=== PATIENT | female | born 1970 | race Caucasian/White ===

== ENCOUNTER → 2017-11-22 | Outpatient (CLI) | payer OTHER, BC ==
[~2017-11-22] MED LIST: ALBU90OI INH; BCP PO; BIRTH CONTROL PO; FEXPSEER PO; PRED10 PO
== END | disposition home or self-care (01) ==
LOC: LAB 08:30 → LAB SHORT 08:30
PROVIDERS: Nurse Practitioner
DX: Z01.419 Encounter for gynecological examination (general) (routine) without abnormal findings (principal)
CPT/HCPCS: G0145

== ENCOUNTER → 2018-06-20 | Outpatient (CLI) | payer OTHER, BC | LOC: LAB EV 17:54 → LAB SHORT 17:54 | DX: R30.0 Dysuria (principal) | CPT/HCPCS: 87086 ==

== ENCOUNTER → 2020-03-10 | Outpatient (CLI) | payer OTHER, BC ==
[~2020-03-10] MED LIST changes: +C COMPLEX1000 M1 PO; +Calcium Ascorb500 MG PO; +MINOCYCLINE HC100 M1 PO; +MULVITA PO; +Prozac20 MG PO; +TAMS.4ER PO; +VITAMIN D310 MC4 PO; +Vitamin B-121000 MCG PO
[2020-03-13 13:11] LABS: M-SPIKE, % Not Observed % (Not Observed); PROTEIN,TOTAL,URINE 6.2 mg/dL (Not Estab.)
== END | disposition home or self-care (01) ==
LOC: PLD 06:53
PROVIDERS: Physician Assistant
DX: R20.2 Paresthesia of skin (principal)
CPT/HCPCS: 81050; 84156; 84166

== ENCOUNTER → 2020-03-17 | Outpatient (CLI) | payer OTHER, BC ==
[2020-03-26 10:11] LABS: COPROPORPHYRIN (CP) I 26 ug/L (Undefined); COPROPORPHYRIN (CP) III 78 ug/L (Undefined); HEPTACARBOXYL (7-CP) 3 ug/L (Undefined); HEXACARBOXYL (6-CP) <1 ug/L (Undefined); PENTACARBOXYL (5-CP) <1 ug/L (Undefined); UROPORPHYRINS (UP) 12 ug/L (Undefined)
== END ==
LOC: LAB SHORT 07:58 → LAB 07:58
PROVIDERS: Physician Assistant
DX: R20.2 Paresthesia of skin (principal)
CPT/HCPCS: 81050; 84120

== ENCOUNTER → 2020-03-31 | Outpatient (CLI) | payer OTHER, BC | END | disposition home or self-care (01) | LOC: LAB SHORT 17:25 → LAB 17:25 | DX: R20.2 Paresthesia of skin (principal) | CPT/HCPCS: 84110 ==

== ENCOUNTER → 2020-08-24 | Outpatient (CLI) | payer OTHER, BC | END | disposition home or self-care (01) | LOC: LAB SHORT 11:51 → LAB 11:51 | DX: N39.0 Urinary tract infection, site not specified (principal) | CPT/HCPCS: 87077; 87086; 87186 ==

== ENCOUNTER 2020-09-05 01:31 | Day surgery (SDC) | payer OTHER, BC ==
[~2020-09-05 01:31] MED LIST changes: -C COMPLEX1000 M1 PO; -Calcium Ascorb500 MG PO; -MINOCYCLINE HC100 M1 PO; -MULVITA PO; -Prozac20 MG PO; -TAMS.4ER PO; -VITAMIN D310 MC4 PO; -Vitamin B-121000 MCG PO
[2020-09-05] MEDS ORDERED: TAMS.4ER PO (15:30)
[2020-09-05] MEDS ORDERED: Prozac20 MG PO (15:50)
[2020-09-05] MEDS ORDERED: Vitamin B-121000 MCG PO (16:26)
[2020-09-05] MEDS ORDERED: C COMPLEX1000 M1 PO (16:27)
[2020-09-05] MEDS ORDERED: VITAMIN D310 MC4 PO (16:27)
[2020-09-05] MEDS ORDERED: MULVITA PO (16:29)
[2020-09-05] MEDS ORDERED: Calcium Ascorb500 MG PO (16:29)
[2020-09-05] MEDS ORDERED: MINOCYCLINE HC100 M1 PO (16:30)
== END 2020-09-05 18:29 | disposition home or self-care (01) ==
LOC: ATC 01:31
DX: G35 Multiple sclerosis (principal); J45.909 Unspecified asthma, uncomplicated; Z91.018 Allergy to other foods; Z91.048 Other nonmedicinal substance allergy status
CPT/HCPCS: 96365; 96366; J2323

== ENCOUNTER → 2020-10-29 | Outpatient (CLI) | payer OTHER, BC ==
[~2020-10-29] MED LIST changes: +C COMPLEX1000 M1 PO; +Calcium Ascorb500 MG PO; +MINOCYCLINE HC100 M1 PO; +MULVITA PO; +Prozac20 MG PO; +Pyridium100 MG PO; +TAMS.4ER PO; +VITAMIN D310 MC4 PO; +Vitamin B-121000 MCG PO
[2020-10-29 07:02] LABS: Source, Urine Clean Catch
[2020-10-29 09:55] LABS: Appearance, Urine Hazy (Clear); Bilirubin, Urine Neg (Neg); Blood, Urine 2+ (Neg); Color, Urine Yellow (P-Yellow); Glucose Qualitative, Urine Neg (Neg); Ketones, Urine Neg (Neg); Leukocyte Esterase, Urine 2+ (Neg); Nitrite, Urine Pos (Neg); Protein, Urine 1+ (Neg); Specific Gravity, Urine 1.015 (1.003-1.022); Urobilinogen, Urine 1+ (Normal)
[2020-10-29 10:06] LABS: Bacteria Many /hpf; Squamous Epithelial Cells Few /hpf (Few); White Blood Cells, Urine TNTC /hpf (0-5)
== END | disposition home or self-care (01) ==
LOC: LAB 07:00 → LAB SHORT 07:00
PROVIDERS: Nurse Practitioner
DX: R35.0 Frequency of micturition (principal)
CPT/HCPCS: 81001; 87077; 87086; 87186

== ENCOUNTER 2020-10-31 00:28 | Day surgery (SDC) | payer OTHER, BC ==
[~2020-10-31] VITALS: Wt 83.5 kg
[~2020-10-31 00:28] MED LIST changes: -Pyridium100 MG PO
[2020-10-31] MEDS ORDERED: Pyridium100 MG PO (08:33)
== END 2020-10-31 10:58 | disposition home or self-care (01) ==
LOC: ATC 00:28
DX: G35 Multiple sclerosis (principal); Z98.84 Bariatric surgery status
CPT/HCPCS: 96365; J2323

== ENCOUNTER → 2020-11-25 | Outpatient (CLI) | payer OTHER, BC ==
[~2020-11-25] MED LIST changes: +BACL10 PO; +Pyridium100 MG PO
[2020-11-25 16:29] LABS: Source, Urine Clean Catch
[2020-11-25 17:21] LABS: Appearance, Urine Clear (Clear); Bilirubin, Urine Neg (Neg); Blood, Urine 1+ (Neg); Color, Urine Yellow (P-Yellow); Glucose Qualitative, Urine Neg (Neg); Ketones, Urine Neg (Neg); Leukocyte Esterase, Urine Neg (Neg); Nitrite, Urine Neg (Neg); Protein, Urine Neg (Neg); Urobilinogen, Urine NORM (Normal)
[2020-11-25 17:31] LABS: Red Blood Cells, Urine 0-2 /hpf (0-2); White Blood Cells, Urine 0-2 /hpf (0-5)
[2020-11-25 17:32] LABS: Bacteria Few /hpf; Squamous Epithelial Cells Rare /hpf (Few)
== END | disposition home or self-care (01) ==
LOC: LAB SHORT 16:27 → LAB 16:27 → LAB FUT 11-24 10:20
PROVIDERS: Psychiatry & Neurology Neurology
DX: N39.0 Urinary tract infection, site not specified (principal)
CPT/HCPCS: 81001

== ENCOUNTER 2020-12-26 13:10 | Day surgery (SDC) | payer OTHER, BC ==
[~2020-12-26] VITALS: Wt 84.3 kg
== END 2020-12-26 16:53 | disposition home or self-care (01) ==
LOC: ATC 13:10
DX: G35 Multiple sclerosis (principal)
CPT/HCPCS: 96365; J2323

== ENCOUNTER 2021-02-20 03:05 | Day surgery (SDC) | payer OTHER, BC | END 2021-02-20 16:30 | disposition home or self-care (01) | LOC: ATC 03:05 | DX: G35 Multiple sclerosis (principal) | CPT/HCPCS: J2323 ==

== ENCOUNTER 2021-04-17 00:33 | Day surgery (SDC) | payer OTHER, BC ==
[~2021-04-17] VITALS: Wt 82.9 kg
== END 2021-04-17 16:00 | disposition home or self-care (01) ==
LOC: ATC 00:33
DX: G35 Multiple sclerosis (principal)
CPT/HCPCS: J2323

== ENCOUNTER 2021-05-15 01:22 | Day surgery (SDC) | payer OTHER, BC ==
[~2021-05-15] VITALS: Wt 83.0 kg
== END 2021-05-15 16:16 | disposition home or self-care (01) ==
LOC: ATC 01:22
DX: G35 Multiple sclerosis (principal)
CPT/HCPCS: J2323

== ENCOUNTER 2021-06-12 00:49 | Day surgery (SDC) | payer OTHER, BC ==
--- NOTE | 2021-06-12 16:08 | NUR ---
PT MONITORED FOR 1 HOUR POST TYSABRI INFUSION. PATIENT TOLERATED WELL. NO COMPLAINTS OR SYMPTOMS OF REACTION.
== END 2021-06-12 16:01 | disposition home or self-care (01) ==
LOC: ATC 00:49
DX: G35 Multiple sclerosis (principal); J45.909 Unspecified asthma, uncomplicated; Z91.018 Allergy to other foods; Z91.048 Other nonmedicinal substance allergy status
CPT/HCPCS: J2323

== ENCOUNTER → 2021-06-23 | Outpatient (CLI) | payer OTHER, BC | END | disposition home or self-care (01) | LOC: LAB SHORT 11:00 → PLD 11:00 | DX: D48.5 Neoplasm of uncertain behavior of skin (principal) | CPT/HCPCS: 88305 ==

== ENCOUNTER 2021-08-18 00:57 | Day surgery (SDC) | payer OTHER, BC | END 2021-08-18 16:25 | disposition home or self-care (01) | LOC: ATC 00:57 | DX: G35 Multiple sclerosis (principal) | CPT/HCPCS: J2323 ==

== ENCOUNTER → 2021-08-24 | Outpatient (CLI) | payer OTHER, BC | END | disposition home or self-care (01) | LOC: PLD 07:38 → LAB SHORT 07:38 | DX: D22.5 Melanocytic nevi of trunk (principal) | CPT/HCPCS: 88305 ==

== ENCOUNTER → 2021-09-15 | Outpatient (CLI) | payer OTHER, BC | END | disposition home or self-care (01) | LOC: LAB SHORT 07:58 → PLD 07:58 | DX: D22.5 Melanocytic nevi of trunk (principal) | CPT/HCPCS: 88305 ==

== ENCOUNTER 2021-10-13 00:58 | Day surgery (SDC) | payer OTHER, BC ==
[2021-10-13] MEDS ORDERED: TYSABRI IV (14:26)
== END 2021-10-13 15:32 | disposition home or self-care (01) ==
LOC: ATC 00:58
DX: G35 Multiple sclerosis (principal); G43.909 Migraine, unspecified, not intractable, without status migrainosus
CPT/HCPCS: 96365; J2323

== ENCOUNTER 2021-11-10 01:38 | Day surgery (SDC) | payer OTHER, BC ==
[~2021-11-10 01:38] MED LIST changes: +TYSABRI IV
== END 2021-11-10 15:55 | disposition home or self-care (01) ==
LOC: ATC 01:38
DX: G35 Multiple sclerosis (principal)
CPT/HCPCS: 96365; J2323

== ENCOUNTER 2022-01-05 01:32 | Day surgery (SDC) | payer OTHER, BC | END 2022-01-05 15:35 | disposition home or self-care (01) | LOC: ATC 01:32 | DX: G35 Multiple sclerosis (principal) | CPT/HCPCS: 96365; J2323 ==

== ENCOUNTER → 2022-01-22 | Outpatient (CLI) | payer OTHER, BC ==
[2022-01-23 13:45] LABS: Candida species (DNA Probe) Negative (NEGATIVE); G. vaginalis (DNA Probe) Negative (NEGATIVE); T. vaginalis (DNA Probe) Negative (NEGATIVE)
== END | disposition home or self-care (01) ==
LOC: LAB SHORT 13:33 → LAB 13:33
PROVIDERS: Family Medicine
DX: N89.8 Other specified noninflammatory disorders of vagina (principal)
CPT/HCPCS: 87480; 87510; 87660

== ENCOUNTER 2022-02-02 03:15 | Day surgery (SDC) | payer OTHER, BC | END 2022-02-02 22:42 | disposition home or self-care (01) | LOC: ATC 03:15 | DX: G35 Multiple sclerosis (principal) | CPT/HCPCS: 96365; J2323 ==

== ENCOUNTER 2022-03-02 00:53 | Day surgery (SDC) | payer OTHER, BC ==
[2022-03-02 16:08] LABS: BASOPHILS ABSOLUTE AUTO 0.05 K/mm3 (0.00-0.23); BASOPHILS PERCENT AUTO 1 % (0-2); EOSINOPHILS ABSOLUTE AUTO 0.26 K/mm3 (0.00-0.68); EOSINOPHILS PERCENT AUTO 3 % (0-6); Hematocrit 38.7 % (33.0-51.0); Hemoglobin 13.3 g/dL (11.5-16.0); IMMATURE GRAN ABSOLUTE AUTO 0.03 K/mm3 (0.00-0.10); IMMATURE GRAN PERCENT AUTO 0 % (0-1); LYMPHOCYTES ABSOLUTE AUTO 4.41 K/mm3 (0.84-5.20); LYMPHOCYTES PERCENT AUTO 42 % (21-46); MONOCYTES ABSOLUTE AUTO 0.79 K/mm3 (0.16-1.47); MONOCYTES PERCENT AUTO 8 % (4-13); Mean Corpuscular HGB 29.6 pg (26.0-34.0); Mean Corpuscular HGB Conc 34.4 g/dL (31.5-36.5); Mean Corpuscular Volume 86 fL (80-100); Mean Platelet Volume 10.5 fL (9.1-12.4); NEUTROPHILS ABSOLUTE AUTO 4.93 K/mm3 (1.96-9.15); NEUTROPHILS PERCENT AUTO 47 % (41-73); NRBC ABSOLUTE 0.02 K/mm3 (0.00-0.02); NRBC Auto 0.2 /100 WBC (0.0-0.2); Platelet Count 207 K/mm3 (150-400); RDW Standard Deviation 43.2 fL (35.1-46.3); White Blood Cell Count 10.47 K/mm3 (4.00-11.30)
[2022-03-02 16:32] LABS: Albumin, Blood 3.8 g/dL (3.4-5.0); Albumin/Globulin Ratio 1.3 (0.8-1.8); Bilirubin, Total 0.3 mg/dL (0.1-1.0); Bun/Creatinine Ratio 26.9 (12.0-20.0); Calcium, Blood 8.9 mg/dL (8.5-10.1); Creatinine, Blood 0.74 mg/dL (0.40-1.00); Globulin, Blood 2.9 g/dL (2.2-4.0); Potassium, Blood 3.6 mmol/L (3.5-5.5); Total Protein, Blood 6.7 g/dL (6.4-8.2)
== END 2022-03-02 15:33 | disposition home or self-care (01) ==
LOC: ATC 00:53
PROVIDERS: Psychiatry & Neurology Neurology
DX: G35 Multiple sclerosis (principal)
CPT/HCPCS: 80053; 85025; 96365; J2323

== ENCOUNTER → 2022-04-28 | Outpatient (CLI) | payer OTHER, BC ==
[~2022-04-28] MED LIST changes: +AMOX-CLAV 875-1 EAC5 PO; +Amitriptyline H10 MG PO; +BACTRIM DS TAB1 EAC6 PO; +TRAZ50 PO
[2022-04-28 10:03] LABS: BASOPHILS ABSOLUTE AUTO 0.08 K/mm3 (0.00-0.23); BASOPHILS PERCENT AUTO 1 % (0-2); EOSINOPHILS ABSOLUTE AUTO 0.26 K/mm3 (0.00-0.68); EOSINOPHILS PERCENT AUTO 3 % (0-6); Hematocrit 42.8 % (33.0-51.0); Hemoglobin 14.9 g/dL (11.5-16.0); IMMATURE GRAN ABSOLUTE AUTO 0.02 K/mm3 (0.00-0.10); IMMATURE GRAN PERCENT AUTO 0 % (0-1); LYMPHOCYTES ABSOLUTE AUTO 3.73 K/mm3 (0.84-5.20); LYMPHOCYTES PERCENT AUTO 45 % (21-46); MONOCYTES ABSOLUTE AUTO 0.58 K/mm3 (0.16-1.47); MONOCYTES PERCENT AUTO 7 % (4-13); Mean Corpuscular HGB 29.7 pg (26.0-34.0); Mean Corpuscular HGB Conc 34.8 g/dL (31.5-36.5); Mean Corpuscular Volume 85 fL (80-100); Mean Platelet Volume 9.3 fL (9.1-12.4); NEUTROPHILS ABSOLUTE AUTO 3.55 K/mm3 (1.96-9.15); NEUTROPHILS PERCENT AUTO 43 % (41-73); Platelet Count 203 K/mm3 (150-400); RDW Coefficient Variation 13.4 % (11.7-14.2); RDW Standard Deviation 41.5 fL (35.1-46.3); Red Blood Cell Count 5.01 M/mm3 (3.80-5.20); White Blood Cell Count 8.22 K/mm3 (4.00-11.30)
[2022-04-28 10:57] LABS: Albumin, Blood 4.4 g/dL (3.4-5.0); Albumin/Globulin Ratio 1.2 (0.8-1.8); Bilirubin, Total 0.5 mg/dL (0.1-1.0); Bun/Creatinine Ratio 20.5 (12.0-20.0); Calcium, Blood 9.8 mg/dL (8.5-10.1); Creatinine, Blood 0.83 mg/dL (0.40-1.00); Globulin, Blood 3.7 g/dL (2.2-4.0); Potassium, Blood 4.2 mmol/L (3.5-5.5); Total Protein, Blood 8.1 g/dL (6.4-8.2)
== END | disposition home or self-care (01) ==
LOC: LAB 09:55 → LAB SHORT 09:55
PROVIDERS: Chiropractor
DX: R10.32 Left lower quadrant pain (principal)
CPT/HCPCS: 80053; 85025

== ENCOUNTER 2022-05-26 14:50 | Day surgery (SDC) | payer OTHER, BC | END 2022-05-26 16:35 | disposition home or self-care (01) | LOC: ATC 14:50 | DX: G35 Multiple sclerosis (principal); J45.909 Unspecified asthma, uncomplicated; Z88.1 Allergy status to other antibiotic agents; Z79.899 Other long term (current) drug therapy | CPT/HCPCS: 96365; J2323 ==

== ENCOUNTER 2022-06-23 02:18 | Day surgery (SDC) | payer OTHER, BC ==
[2022-06-23 13:55] VITALS: BP 133/70
== END 2022-06-23 14:20 | disposition home or self-care (01) ==
LOC: ATC 02:18
DX: G35 Multiple sclerosis (principal)
CPT/HCPCS: 96365; J2930

== ENCOUNTER 2022-06-24 01:00 | Day surgery (SDC) | payer OTHER, BC ==
[2022-06-24 11:20] VITALS: BP 130/62
== END 2022-06-24 12:00 | disposition home or self-care (01) ==
LOC: ATC 01:00
DX: G35 Multiple sclerosis (principal)
CPT/HCPCS: 96365; J2323; J2930

== ENCOUNTER 2022-07-20 01:42 | Day surgery (SDC) | payer OTHER, BC ==
[2022-07-20 13:46] VITALS: BP 111/69
--- NOTE | 2022-07-23 15:43 | NUR ---
RECEIVED A CALL FROM OUR LAB TODAY STATING THAT THE SEND OUT LAB FOR IRIS'S T SPOT TB TEST SPECIMEN THAT WAS DRAWN ON 06.22.22 HAS BEEN REJECTED. FAXED A NOTIFICATION TO DR. AYALA'S OFFICE TO SEE IF WE CAN REDRAW THIS TEST AT HER NEXT APPOINTMENT IN 4 WEEKS OR IF SHE NEEDS TO GO TO THE OUTPATIENT LAB TO HAVE THE TEST REDRAWN SOONER.
== END 2022-07-20 15:14 | disposition home or self-care (01) ==
LOC: ATC 01:42
DX: G35 Multiple sclerosis (principal); J45.909 Unspecified asthma, uncomplicated; Z88.1 Allergy status to other antibiotic agents
CPT/HCPCS: 96365; J2323

== ENCOUNTER → 2023-01-15 | Outpatient (CLI) | payer OTHER, BC | LOC: LAB SHORT 09:00 → LAB 09:00 | DX: R30.0 Dysuria (principal) | CPT/HCPCS: 87077; 87086; 87186 ==

== ENCOUNTER → 2023-03-28 | Outpatient (CLI) | payer OTHER, BC | LOC: LAB 11:20 → LAB SHORT 11:20 | DX: N39.0 Urinary tract infection, site not specified (principal) | CPT/HCPCS: 87077; 87086; 87186 ==

== ENCOUNTER 2023-08-22 03:58 | Day surgery (SDC) | payer OTHER, BC ==
[~2023-08-22] VITALS: Wt 86.6 kg
[2023-08-22] MEDS ORDERED: UBLITUXIMAB-XIIY 450 MG in NS 232 ML IV SCH (06:00)
[2023-08-22] MEDS ORDERED: Acetaminophen 325 MG TABLET PO SCH (07:10)
[2023-08-22] MEDS ORDERED: MethylPREDNISolone Sod Succ 125 MG Vial IV SCH (07:10)
[2023-08-22] MEDS ORDERED: DiphenhydrAMINE HCl 50 MG/ML 1ML Vial IV SCH (07:10)
[2023-08-22 13:35] VITALS: BP 129/77
[2023-08-22 14:14] LABS: BASOPHILS ABSOLUTE AUTO 0.03 K/mm3 (0.00-0.23); BASOPHILS PERCENT AUTO 0 % (0-2); EOSINOPHILS ABSOLUTE AUTO 0.13 K/mm3 (0.00-0.68); EOSINOPHILS PERCENT AUTO 2 % (0-6); Hematocrit 39.8 % (33.0-51.0); Hemoglobin 13.8 g/dL (11.5-16.0); IMMATURE GRAN ABSOLUTE AUTO 0.01 K/mm3 (0.00-0.10); IMMATURE GRAN PERCENT AUTO 0 % (0-1); LYMPHOCYTES ABSOLUTE AUTO 2.08 K/mm3 (0.84-5.20); LYMPHOCYTES PERCENT AUTO 31 % (21-46); MONOCYTES ABSOLUTE AUTO 0.56 K/mm3 (0.16-1.47); MONOCYTES PERCENT AUTO 8 % (4-13); Mean Corpuscular HGB 30.2 pg (26.0-34.0); Mean Corpuscular HGB Conc 34.7 g/dL (31.5-36.5); Mean Corpuscular Volume 87 fL (80-100); Mean Platelet Volume 10.2 fL (9.1-12.4); NEUTROPHILS ABSOLUTE AUTO 3.98 K/mm3 (1.96-9.15); NEUTROPHILS PERCENT AUTO 59 % (41-73); Platelet Count 236 K/mm3 (150-400); RDW Coefficient Variation 12.4 % (11.7-14.2); RDW Standard Deviation 39.4 fL (35.1-46.3); Red Blood Cell Count 4.57 M/mm3 (3.80-5.20); White Blood Cell Count 6.79 K/mm3 (4.00-11.30)
[2023-08-22] MEDS ORDERED: [UNRECOGNIZED DRUG - OTHER] IV (14:23)
[2023-08-22 14:38] LABS: Albumin, Blood 3.8 g/dL (3.4-5.0); Albumin/Globulin Ratio 1.3 (0.8-1.8); Bilirubin, Total 0.2 mg/dL (0.1-1.0); Bun/Creatinine Ratio 35.7 (12.0-20.0); Calcium, Blood 9.2 mg/dL (8.5-10.1); Creatinine, Blood 0.62 mg/dL (0.40-1.00); Potassium, Blood 3.7 mmol/L (3.5-5.5); Total Protein, Blood 6.8 g/dL (6.4-8.2)
[2023-08-22 15:33] VITALS: BP 124/71
[2023-08-23 23:22] LABS: IMMUNOGLOBULIN A 176 mg/dL (68-408); IMMUNOGLOBULIN G 670 mg/dL (768-1632); IMMUNOGLOBULIN M 13 mg/dL (35-263)
== END 2023-08-22 15:38 | disposition home or self-care (01) ==
LOC: ATC 03:58
PROVIDERS: Psychiatry & Neurology Neurology
DX: G35 Multiple sclerosis (principal); R26.89 Other abnormalities of gait and mobility; J45.909 Unspecified asthma, uncomplicated; F32.9 Major depressive disorder, single episode, unspecified; G62.9 Polyneuropathy, unspecified; Z79.899 Other long term (current) drug therapy; Z88.8 Allergy status to other drugs, medicaments and biological substances
CPT/HCPCS: 80053; 82784; 85025; 96365; 96375; A9270; J1200; J2329; J2919; J7050

== ENCOUNTER → 2023-09-12 | Outpatient (CLI) | payer OTHER, BC ==
[~2023-09-12] MED LIST changes: +[UNRECOGNIZED DRUG - OTHER] IV
== END | disposition home or self-care (01) ==
LOC: LAB 08:09 → LAB SHORT 08:09
DX: N39.0 Urinary tract infection, site not specified (principal)
CPT/HCPCS: 87077; 87086; 87186

== ENCOUNTER 2024-02-24 09:58 | Day surgery (SDC) | payer OTHER, BC ==
[~2024-02-24 09:58] MED LIST changes: +Acetaminophen 325 MG TABLET PO SCH; +DiphenhydrAMINE HCl 50 MG/ML 1ML Vial IV SCH; +Hydrocortisone Sod Succinate 100 MG Vial IV SCH; +UBLITUXIMAB-XIIY 450 MG in NS 232 ML IV SCH
[2024-02-24 10:09] VITALS: BP 116/90
[2024-02-24] MEDS ORDERED: TIZA4 PO (10:12)
[2024-02-24 10:53] LABS: BASOPHILS ABSOLUTE AUTO 0.05 K/mm3 (0.00-0.23); BASOPHILS PERCENT AUTO 1 % (0-2); EOSINOPHILS ABSOLUTE AUTO 0.13 K/mm3 (0.00-0.68); EOSINOPHILS PERCENT AUTO 2 % (0-6); Hematocrit 39.3 % (33.0-51.0); Hemoglobin 13.8 g/dL (11.5-16.0); IMMATURE GRAN ABSOLUTE AUTO 0.01 K/mm3 (0.00-0.10); IMMATURE GRAN PERCENT AUTO 0 % (0-1); LYMPHOCYTES ABSOLUTE AUTO 1.72 K/mm3 (0.84-5.20); LYMPHOCYTES PERCENT AUTO 29 % (21-46); MONOCYTES ABSOLUTE AUTO 0.62 K/mm3 (0.16-1.47); MONOCYTES PERCENT AUTO 10 % (4-13); Mean Corpuscular HGB 30.1 pg (26.0-34.0); Mean Corpuscular HGB Conc 35.1 g/dL (31.5-36.5); Mean Corpuscular Volume 86 fL (80-100); Mean Platelet Volume 10.6 fL (9.1-12.4); NEUTROPHILS ABSOLUTE AUTO 3.42 K/mm3 (1.96-9.15); NEUTROPHILS PERCENT AUTO 58 % (41-73); Platelet Count 197 K/mm3 (150-400); RDW Coefficient Variation 12.5 % (11.7-14.2); RDW Standard Deviation 38.1 fL (35.1-46.3); Red Blood Cell Count 4.59 M/mm3 (3.80-5.20); White Blood Cell Count 5.95 K/mm3 (4.00-11.30)
[2024-02-24 12:55] LABS: Albumin, Blood 3.5 g/dL (3.4-5.0); Albumin/Globulin Ratio 1.2 (0.8-1.8); Bilirubin, Total 0.3 mg/dL (0.1-1.0); Bun/Creatinine Ratio 29.6 (12.0-20.0); Calcium, Blood 9.6 mg/dL (8.5-10.1); Creatinine, Blood 0.78 mg/dL (0.40-1.00); Potassium, Blood 5.4 mmol/L (3.5-5.5); Total Protein, Blood 6.5 g/dL (6.4-8.2)
[2024-02-26 21:48] LABS: IMMUNOGLOBULIN A 154 mg/dL (68-408); IMMUNOGLOBULIN G 626 mg/dL (768-1632); IMMUNOGLOBULIN M <10 mg/dL (35-263)
== END 2024-02-24 12:08 | disposition home or self-care (01) ==
LOC: ATC 09:58
PROVIDERS: Psychiatry & Neurology Neurology
DX: G35 Multiple sclerosis (principal); F32.A Depression, unspecified; J45.909 Unspecified asthma, uncomplicated; Z79.899 Other long term (current) drug therapy
CPT/HCPCS: 80053; 82306; 82784; 85025; 96365; 96375; A9270; J1200; J1720; J2329; J7050

== ENCOUNTER 2025-01-22 00:22 | Day surgery (SDC) | payer OTHER, BC ==
[~2025-01-22 00:22] MED LIST changes: -Acetaminophen 325 MG TABLET PO SCH; -DiphenhydrAMINE HCl 50 MG/ML 1ML Vial IV SCH; -Hydrocortisone Sod Succinate 100 MG Vial IV SCH; +TIZA4 PO; -UBLITUXIMAB-XIIY 450 MG in NS 232 ML IV SCH
[2025-01-22] MEDS ORDERED: UBLITUXIMAB-XIIY 450 MG in NS 232 ML IV SCH (06:00)
[2025-01-22] MEDS ORDERED: DiphenhydrAMINE HCl 50 MG/ML 1ML Vial IV SCH (07:00)
[2025-01-22 08:04] VITALS: BP 129/68
== END 2025-01-22 10:02 | disposition home or self-care (01) ==
LOC: ATC 00:22
DX: G35.D Multiple sclerosis, unspecified (principal); J45.909 Unspecified asthma, uncomplicated; G62.9 Polyneuropathy, unspecified; Z79.899 Other long term (current) drug therapy
CPT/HCPCS: 96413; 96415; A9270; J1200; J2329; J2919; J7050